=== PATIENT | male | born 2000 ===

== ENCOUNTER 2024-03-26 16:15 | Inpatient (IN) | payer OTHER ==
[2024-03-26] MEDS ORDERED: BENZONATATE 100 MG CAP PO ONE ×2 (19:42→19:47)
[2024-03-27] MEDS ORDERED: cefTRIAXone 2 GM VIAL ONE (00:15)
[2024-03-27] MEDS ORDERED: AZITHROMYCIN 500 MG VIAL IVPB ONE (00:15)
[2024-03-27] MEDS ORDERED: IPRATROPIUM-ALBUTEROL 3 ML NEB ONE ×3 (07:48→15:11)
[2024-03-27] MEDS ORDERED: ENOXAPARIN 40 MG/0.4 ML SYRINGE SQ ONE (10:33)
[2024-03-27] MEDS ORDERED: ACETAMINOPHEN TAB 325 MG TAB ONE ×2 (13:05→23:22)
[2024-03-28] MEDS ORDERED: IPRATROPIUM-ALBUTEROL 3 ML NEB ONE ×3 (07:53→15:14)
[2024-03-28] MEDS ORDERED: ENOXAPARIN 40 MG/0.4 ML SYRINGE SQ ONE (09:43)
[2024-03-28] MEDS ORDERED: cefTRIAXone 1 GM VIAL ONE (09:43)
[2024-03-28] MEDS ORDERED: AZITHROMYCIN 500 MG TAB ONE (09:43)
[2024-03-28] MEDS ORDERED: MELATONIN 3 MG TABLET ONE (22:02)
[2024-03-28] MEDS ORDERED: guaiFENesin-DM 600/30MG 1 EACH TAB.ER.12H PO ONE (23:59)
[2024-03-28] MEDS ORDERED: SODIUM CHLORIDE 0.9% 250 ML BAG ONE (23:59)
[2024-03-28] MEDS ORDERED: SODIUM CHLORIDE 0.9% 50 ML BAG ONE (23:59)
[2024-03-29] MEDS ORDERED: IPRATROPIUM-ALBUTEROL 3 ML NEB ONE (03:13)
[2024-03-29] MEDS ORDERED: ENOXAPARIN 40 MG/0.4 ML SYRINGE SQ ONE (08:37)
[2024-03-29] MEDS ORDERED: cefTRIAXone 1 GM VIAL ONE (08:37)
[2024-03-29] MEDS ORDERED: SODIUM CHLORIDE 0.9% 250 ML BAG ONE (23:59)
[2024-03-29] MEDS ORDERED: SODIUM CHLORIDE 0.9% 50 ML BAG ONE (23:59)
[2024-03-30] MEDS ORDERED: SODIUM CHLORIDE 0.9% 250 ML BAG ONE (08:00)
[2024-03-30] MEDS ORDERED: SODIUM CHLORIDE 0.9% 50 ML BAG ONE (08:00)
[2024-03-30] MEDS ORDERED: guaiFENesin-DM 100-10MG/5ML 10 ML CUP ONE (08:00)
[2024-03-30] MEDS ORDERED: ENOXAPARIN 40 MG/0.4 ML SYRINGE SQ ONE (09:03)
[2024-03-30] MEDS ORDERED: cefTRIAXone 1 GM VIAL ONE (09:03)
--- NOTE | 2024-04-26 08:43 | XR ---
Patient Flo Lafleur ID [id number] Order # EXAMINATION TYPE: XR chest 1V DATE OF EXAM: 03/28/2024 8:35 AM CLINICAL INDICATION: Shortness of breath COMPARISON: THIS EXAM WAS READ DURING PACS DOWNTIME, NO PRIORS AVAILABLE. TECHNIQUE: XR chest 1V Frontal view of the chest. FINDINGS: Lungs/Pleura: There is no evidence of pleural effusion, focal consolidation, or pneumothorax. Pulmonary vascularity: Unremarkable. Heart/mediastinum: Cardiomediastinal silhouette is unremarkable. Musculoskeletal: No acute osseous pathology. IMPRESSION: Right lower lobe airspace opacities possibly representing infection versus atelectasis.
--- NOTE | 2024-04-26 14:06 | XR ---
[id number] FELISHA BEAVER : 2000 EXAM: Frontal and lateral view of the chest. DATE: 03/26/2024 19:55 INDICATION: COUGH, SHORTNESS OF BREATH COMPARISON: None, please note PACS downtime occurred during the radiologist interpretation of these i mages with limited priors/reports.. TECHNIQUE: Frontal and lateral views of the chest. FINDINGS: Lungs/Pleura: Haziness to the right lower medial lung. There is no evidence of pleural effusion, foca l consolidation, or pneumothorax. Pulmonary vascularity: Unremarkable. Heart/mediastinum: Cardiomediastinal silhouette is unremarkable. Musculoskeletal: No acute osseous pathology. Other findings: No significant findings. IMPRESSION: Right middle lobe airspace opacities correlate for pneumonia.
--- NOTE | 2024-04-27 09:05 | CT ---
EXAM: CT Angiography Chest With Intravenous Contrast CLINICAL HISTORY: sob, r/o pe TECHNIQUE: Axial computed tomographic angiography images of the chest with intravenous contrast. CTDI is 31.2 mGy and DLP is 1017.8 mGy-cm. This CT exam was performed using one or more of the following dose reduction techniques: automated exposure control, adjustment of the mA and/or kV according to patient size, and/or use of iterative reconstruction technique. MIP reconstructed images were created and reviewed. COMPARISON: No relevant prior studies available. FINDINGS: Pulmonary arteries:Unremarkable. No pulmonary embolism. Aorta:No acute findings. No thoracic aortic aneurysm. Lungs:Airspace consolidation in the RIGHT middle and lower lobes, consistent with pneumonia. Pleural space:Unremarkable. No significant effusion. No pneumothorax. Heart:Unremarkable. No cardiomegaly. No significant pericardial effusion. No evidence of RV dysfunction. Bones/joints:No acute fracture. No dislocation. Soft tissues:Unremarkable. Lymph nodes:Unremarkable. No enlarged lymph nodes. Liver:Hepatic steatosis. Spleen: Splenomegaly measuring up to 16 cm. IMPRESSION: Airspace consolidation in the RIGHT middle and lower lobes, consistent with pneumonia. Radiologist: Zhang Sanchez MD Electronically Signed: 03/27/24 00:39 Study ready at 23:27 and initial results transmitted at 00:39 Results also transmitted to Film Room, Film Room @ [phone] (Fax) [facility]
--- NOTE | 2024-05-12 14:07 | HP ---
HISTORY AND PHYSICAL HISTORY OF PRESENT ILLNESS: This is a 23-year-old man who has a history of obesity class 2 who presented for 1-1/2 weeks of cough and weakness. The patient was seen in urgent care with this issue approximately 1 week ago and was provided a prescription for Augmentin which he has taking twice a day, however, he notes that he was not improving and started feeling increasingly short of breath with even minimal exertion. Therefore, he returned to urgent care today for further evaluation and was told to go to the emergency room after finding that he was saturating 85% on room air. The patient reports fevers, chills, sweats. He denies chest pain, dysuria, , abdominal pain, palpitations, syncope, presyncope, numbness/weakness of extremities. He does also report cough with some congestion, but is not bringing up any sputum. In the emergency room, however, the patient was afebrile, blood pressure 150/70, heart rate was 87, 93% on 12 L of high-flow nasal cannula. Initial workup included CBC which demonstrated leukocytosis at 12.2, hemoglobin was 15, platelets were 385. Basic metabolic panel was unremarkable. Liver function tests were significant for elevated AST of 57, elevated ALT of 48, alkaline phosphatase was 81. Lactic acid was 1.1. Troponin was less than 0.012. BNP was 127. was negative. Coags were unremarkable. ABG was done which showed a pH of 7.42, pCO2 of 46, pO2 of 64.8 on 12 L of high flow. Chest x-ray showed right middle lobe and right lower lobe opacities. CT angiography to rule out pulmonary embolism confirmed air space consolidation in the right middle lobe and right lower lobe and was negative for pulmonary embolism. EKG showed questionable lead reversal, tachycardia but was negative for ischemia. REVIEW OF SYSTEMS: All systems were reviewed, and pertinent positives and negatives were listed in the HPI, otherwise negative. PHYSICAL EXAMINATION: GENERAL: The patient appeared to be in mild distress from dyspnea, mildly toxic. RESPIRATORY: The patient had coarse crackles in the posterior lung base on the right as well as anterior lung base on the right, left lung was clear. CARDIOVASCULAR: The patient was tachycardic. No appreciable murmurs. No edema. No JVD. GASTROINTESTINAL: Soft. Nontender to palpation. Nondistended. GENITOURINARY: No suprapubic tenderness. No costovertebral angle tenderness. MSK: No rashes, no cyanosis. NEURO: The patient was moving all extremities and was nonfocal. PSYCHIATRIC: The patient was cooperative, euthymic mood. Judgment and insight were intact. Labs and images were reviewed as above. ASSESSMENT AND PLAN: 1. Sepsis with acute hypoxemic respiratory failure secondary to community-acquired pneumonia. Continue the patient on antibiotics in the form of ceftriaxone 2 g q.24 hours, azithromycin 500 mg IV daily. Followup blood cultures. Urine Legionella is pending. DuoNeb q.4 hours p.r.n. Obtain a procalcitonin. IV fluids in the form of lactated Ringer's at 100 mL/hour. Consult Pulmonology. 2. Obesity, class 2. Recommend PCP followup with outpatient diet and exercise, lifestyle modification education. 3. Deep vein thrombosis prophylaxis, Lovenox 40 mg subcu daily. 4. The patient is a full code. MMODL / IJN: [id number] /
== END 2024-03-30 12:04 | disposition home or self-care (01) | DRG 871 ==
LOC: 3SCARD 16:15 → UNDOADMIN 03-27 16:15 → 3SCARD 03-27 16:15 → UNDODISIN 03-30 12:04
PROVIDERS: ADMIT Internal Medicine; ATTEND Internal Medicine
DX: A41.9 Sepsis, unspecified organism (principal); J18.9 Pneumonia, unspecified organism; J96.01 Acute respiratory failure with hypoxia; Z68.42 Body mass index [BMI] 45.0-49.9, adult; Z11.52 Encounter for screening for COVID-19; E66.01 Morbid (severe) obesity due to excess calories
CPT/HCPCS: 71045; 71046; 71275; 87040; 93306; 94640; 96361; 96365; 96367; 99285